=== PATIENT | female | born 1985 | race Caucasian/White ===

== ENCOUNTER 2024-07-12 12:31 | Emergency (ER) | payer MEDICAID, SELFPAY ==
[2024-07-12 12:32] VITALS: BMI 52.3
--- NOTE | 2024-07-12 13:31 | XR_ITS ---
Examination: PA lateral chest 2 views Technique: Upright PA lateral chest 2 views Exam date and time: July 12, 2024 1347 hrs. Comparison October 24, 2023 Indications: Shortness of breath coughing beginning 2 days ago. Findings: Mild prominence left ventricle Mild vascular congestion Suspicious for early left lower lobe pneumonia The osseous structures are intact Impression: Suspicious for early left lower lobe pneumonia
[2024-07-12 13:35] VITALS: BP 139/90; PULSE 96; RESP 18; TEMP 37.1; O2SAT 94
[2024-07-12] MEDS: ALBUTEROL/IPRATROPIUM (Duoneb) RT SOL 3 ML NEBU INH (14:17)
[2024-07-12 14:20] LABS: Strep A Rapid Negative (Negative)
[2024-07-12 14:21] VITALS: PULSE 102; RESP 19; O2SAT 100
[2024-07-12 15:16] VITALS: PULSE 105; PULSE 113; RESP 19; O2SAT 100
[2024-07-12] MEDS: ALBUTEROL RT 2.5 MG/0.5 ML NEBU INH (15:16)
[2024-07-12] MEDS: SODIUM CHLORIDE RT SOL 0.9% 3 ML NEBU INH (15:16)
[2024-07-12] MEDS: predniSONE 20 MG TABLET 60 MG PO (15:17)
[2024-07-12] MEDS: PROMETHAZINE/DM SYRUP 5 ML DOSE PO (15:18)
--- NOTE | 2024-07-12 16:23 | EDNOTE_ITS ---
Upper Respiratory Inf. RME/HPI General Chief Complaint: Flu Like Symptoms Stated Complaint: CHEST PAIN WORSENING WITH COUGH, FEVER Time Seen by Provider: 07/12/24 13:11 Source: patient Arrival date/time: 07/12/24 12:31 This is a 38-year-old female presents to the emergency department with intermittent cough for approximately 4 days. Patient does report she was evaluated by her PCP however no improvement despite taking medication. Positive mild wheezing,no fever. Related Data Previous Rx's ?Medication ?Instructions ?Recorded albuterol sulfate 90 mcg/actuation 2 puff inhalation Q 6H PRN 07/12/24 aerosol inhaler (Ventolin HFA) shortness of breath or wheezing #8.5 grams promethazine-DM 6.25 mg-15 mg/5 mL 5 ml PO Q6H PRN cou gh #118 mL 07/12/24 oral syrup Allergies Allergy/AdvReac Type Severity Reaction Status Date / Time No Known Allergies Allergy Verified 07/12/24 12:34 Review of Systems Review of Systems Systems Reviewed: All systems reviewed, normal except as documented Narrative Review of Systems: Gen: No fever, no chills, no weight loss EYES: No discharge, no visual changes, no pain HEENT: No ear pain, + chest congestion, no sore throat PULM: No shortness of breath, +cough, no congestion CV: No chest pain, no dyspnea on exertion, no palpitations GI: No nausea, no vomiting, no diarrhea, no pain, no constipation : No frequency, no urgency,? no dysuria Musc/skel: No joint pain, no back pain Skin: No rash? ED Exam Narrative Physical exam: General: Sittiing in Exam table in no acute distress, answering questions appropriately HENT: normocephalic, atraumatic, EOMI, PERRLA, moist mucous membranes Chest: chest wall is nontender Cardiac: regular rate and rhythm, normal S1 and S2, no murmurs, rubs, or gallops, capillary refill ?2 seconds Pulmonary: Positive upper rhonchi auscultation bilaterally, no wheezing, crackles, i Abdominal: active bowel sounds, soft, nontender, nondistended Neuro: A&OX3, CN II-XII intact, sensation grossly intact bilaterally in UE and LE. Skin: no rashes, no ecchymosis Ext: no lower extremity edema Course Quality Measures none Orders Category Date Time Status Bedside COVID-19 Antigen Test NOW Care 07/12/24 13:31 Completed Bedside Influenza A&B Antigen Test NOW Care 07/12/24 13:31 Completed XR chest 2V Stat Exams 07/12/24 13:31 Completed Strep A Rapid Stat Lab 07/12/24 13:37 Completed ALBUTEROL RT 0.5ml [Proventil Rt 0.5ml] Med 07/12/24 14:58 Discontinued 2.5 mg INH X1 ONE Albuterol/Ipratr Rt Neeta [Duoneb Rt Neeta] Med 07/12/24 13:42 Discontinued 3 ml INH X1 ONE Promethazine/Dextromethorph [Phenergan Dm Syrup] Med 07/12/24 14:58 Discontinued 5 ml PO X1 ONE Sodium Chloride Rt Neeta 0.9% [NS Rt Neeta 0.9%] Med 07/12/24 14:58 Discontinued 3 ml INH PRN PRN cefTRIAXone [Rocephin] 1,000 mg Med 07/12/24 16:27 Discontinued Lidocaine 1% 20 ml [Xylocaine 1% 20 ML] 2.1 ml IM X1 predniSONE Med 07/12/24 14:58 Discontinued 60 mg PO X1 ONE Vital Signs Vital signs: Vital Signs Temperature 98.8 F 07/12/24 13:35 Pulse Rate 96 07/12/24 13:35 Respiratory Rate 18 07/12/24 13:35 Blood Pressure 139/90 H 07/12/24 13:35 Pulse Oximetry (%) 94 L 07/12/24 13:35 Oxygen Delivery Method Room Air 07/12/24 13:35 Upper Respiratory Infection MDM Narrative MDM Narrative:: 38-year-old female here in the emergency department with what appears to have bronchitis. Patient was given a couple breathing treatments, steroid, cough syrup improving her symptoms. Patient's vital signs stable oxygenation up to 100%. Patient sent home with adjunctive medication follow-up with her PCP. Return to the emergency department this any worsening symptoms change in condition. Patient data External records reviewed:: [facility] previous records Clinical information provided by:: patient Social determinants that could affect healthcare access:: none Patient has the following chronic illnesses:: none How is presenting disease/condition affected by chronic disease/condition?: no chronic disease Evaluation data The following diagnostics were reviewed and interpreted by me:: radiology exam(s) Lab and/or radiology exams considered but not ordered:: none Interpretation Summary: Examination: PA lateral chest 2 views Technique: Upright PA lateral chest 2 views Exam date and time: July 12, 2024 1347 hrs. Comparison October 24, 2023 Indications: Shortness of breath coughing beginning 2 days ago. Findings: Mild prominence left ventricle Mild vascular congestion Suspicious for early left lower lobe pneumonia The osseous structures are intact Impression: Suspicious for early left lower lobe pneumonia Medications / Prescriptions Medications or Prescriptions considered but not ordered:: none Medication administrations:: Medication Administration History Discontinued Medications Albuterol (Albuterol Rt 2.5 Mg/0.5 Ml Nebu) 2.5 mg INH X1 ONE Stop: 07/12/24 14:59 Last Admin: 07/12/24 15:16 Dose: 2.5 mg Documented By: LAURA Albuterol/Ipratropium (Albuterol/Ipratropium (Duoneb) Rt Neeta 3 Ml Nebu) 3 ml INH X1 ONE Stop: 07/12/24 13:43 Last Admin: 07/12/24 14:17 Dose: 3 ml Documented By: LAURA Ceftriaxone Sodium 1,000 mg/ (Lidocaine HCl 2.1 ml) 0 mg IM X1 ONE Stop: 07/12/24 16:28 Last Admin: 07/12/24 17:05 Dose: 1,000 mg Documented By: Prednisone (Prednisone 20 Mg Tablet) 60 mg PO X1 ONE Stop: 07/12/24 14:59 Last Admin: 07/12/24 15:17 Dose: 60 mg Documented By: Promethazine HCl/Dextromethorphan (Promethazine/Dm Syrup 5 Ml Dose) 5 ml PO X1 ONE; Protocol Stop: 07/12/24 14:59 Last Admin: 07/12/24 15:18 Dose: 5 ml Documented By: Sodium Chloride (Sodium Chloride Rt Neeta 0.9% 3 Ml Nebu) 3 ml INH PRN PRN PRN Reason: SOLN Stop: 08/11/24 14:57 Last Admin: 07/12/24 15:16 Dose: 3 ml Documented By: LAURA All medications administered and effective Consultations Consultation(s) initiated? (list below): No Diagnosis Upper Respiratory Differential Diagnosis: upper respiratory infection, viral infection, bronchitis, influenza and other (Bronchitis) Most likely diagnosis given after review of the tests above:: Bronchitis Admission Indicated Admission indicated?: not indicated Explain why admission is indicated or not indicated:: none Admission Request Was there a request for admission?: No Disposition Plan Disposition Plan: Discharge Discharge Attestation Discharge Attestation: The patient and all family members were given an opportunity to ask questions and understood the discharge instructions. Discharge instructions specifically effects, indications for sooner follow up or return to the emergency department, and the expected course of current diagnosis. Patient condition: Stable Discharge Plan Plan Patient Disposition: HOME (Self Care) Patient condition on transfer: Stable Prescriptions/Referrals Prescriptions/Med Rec: New promethazine-DM 6.25-15 mg/5 mL syrup 5 ml PO Q6H PRN (Reason: cough) Qty: 118 0RF albuterol sulfate [Ventolin HFA] 90 mcg/actuation HFA aerosol inhaler 2 puff inhalation Q6H PRN (Reason: shortness of breath or wheezing) Qty: 8.5 0RF Referrals: Ja Mercado MD [Primary Care Provider] - In 1 week Problem List Clinical Impression: Bronchitis Patient/Caregiver Discharge Instructions Discharge Activity: activity as tolerated Education Materials: ED Bronchitis with Wheezing (Adult) Additional Instructions: - Please you can pick up man all your medications to the pharmacy. You were provided with albuterol inhalers, steroids, short course of antibiotics and cough syrup. Please follow-up with your primary doctor on Sunday for follow-up care Return to the emergency department this any worsening symptoms change in condition.. Print Language: [place] Stand Alone Forms: Breanna Award Info., Patient Portal Info Letter NORMAN/MIAN Supervising Physician NORMAN/IMAN Supervising Physician: Dr. Connors
[2024-07-12] MEDS: cefTRIAXone 1,000 MG, LIDOCAINE 1% 20 ML 2.1 ML IM (17:05)
== END 2024-07-12 17:45 | disposition home or self-care (01) ==
PROVIDERS: Nurse Practitioner Primary Care; Emergency Provider Emergency Medicine; PCP Family Medicine
DX: J40 Bronchitis, not specified as acute or chronic (principal)
CPT/HCPCS: 71046; 87400; 87651; 87811; 94640; 96372; 99284; A9270; J0696; J3490; J7512